=== PATIENT | male | born 1970 | race Asian ===

== ENCOUNTER 2019-07-16 15:39 | Outpatient (CLI) | payer BC ==
--- NOTE | 2019-07-16 16:33 | RAD ---
LUMBAR SPINE TWO-THREE VIEW: 07/16/19 INDICATION: Myofascial pain syndrome. FINDINGS: There is no evidence of compression fracture or subluxation. There is multilevel facet osteoarthritis . Mild end plate osteophytosis. IMPRESSION: Degenerative change of the lumbar spine without acute compression fracture or subluxation. POS: C
== END 2019-07-16 15:40 | disposition home or self-care (01) ==
LOC: BICRAD 15:39
PROVIDERS: ATTEND Internal Medicine
DX: M79.18 Myalgia, other site (principal); M47.816 Spondylosis without myelopathy or radiculopathy, lumbar region
CPT/HCPCS: 72100

== ENCOUNTER 2020-04-22 06:15 | Outpatient (CLI) | payer BC, OTHER ==
[2020-04-22 11:28] LABS: #Eosinphils 0.1 thou/uL (0.0-0.7); #Lymphocytes 1.3 thou/uL (1.20-3.40); #Monocytes 0.4 thou/uL (0.11-0.59); #Neutrophils 2.7 thou/uL (1.40-6.50); %Basophils 0.9 % (0.0-1.0); %Eosinophils 2.4 % (0.0-10.0); %Lymphocytes 29.4 % (21.0-51.0); %Monocytes 7.6 % (0.0-10.0); %Neutrophils 59.8 % (42.0-75.0); Hemoglobin 15.5 g/dL (14.0-18.0); Mean Corpuscular HGB CONC 33.8 g/dL (32.0-36.0); Mean Corpuscular Volume 94.8 fL (78.0-98.0); Mean Platelet Volume 8.6 fL (7.4-10.4); Platelet Count 236 thou/uL (130-400); Red Blood Cell (RBC) Count 4.84 mill/uL (4.70-6.10); White Blood Cell (WBC) Count 4.6 thou/uL (4.8-10.8)
[2020-04-22 11:37] LABS: Bacteria/HPF None Seen HPF (None Seen); Bilirubin Negative (Negative); Blood, Urine Negative (Negative); Clarity Clear (Clear); Glucose, Urine (Dipstick) Normal (Negative); Leukocyte Negative Leu/uL (Negative); Nitrite Negative (Negative); Protein, Urine (Dipstick) Negative (Neg-Trace); RBC/HPF 0-3 HPF (0-3); Squamous Epithelial None Seen HPF (0-3); Urobilinogen Normal mg/dL (Less than 2); WBC/HPF None Seen HPF (0-3)
[2020-04-22 12:01] LABS: Anion Gap 15 mmol/L (10-20); BUN (Urea Nitrogen) 16 mg/dL (8.9-20.6); Calc. Creatinine Clearance 0 mL/min (70-130); Calcium 9.6 mg/dL (7.8-10.44); Carbon Dioxide 29 mmol/L (22-29); Chloride 101 mmol/L (98-107); Estimated GFR-MDRD 88; Glucose 101 mg/dL (70-105); Potassium 4.5 mmol/L (3.5-5.1); Sodium 140 mmol/L (136-145)
[2020-04-23 11:33] LABS: SARS-CoV-2 MS2 Positive; SARS-CoV-2 N Gene Negative; SARS-CoV-2 S Gene Negative; SARS-CoV-2 orf1ab Negative
== END 2020-04-22 06:16 | disposition home or self-care (01) ==
LOC: LABBT 06:15
PROVIDERS: ATTEND Urology
DX: Z01.812 Encounter for preprocedural laboratory examination (principal); Z11.59 Encounter for screening for other viral diseases; N40.0 Benign prostatic hyperplasia without lower urinary tract symptoms; R39.9 Unspecified symptoms and signs involving the genitourinary system
CPT/HCPCS: 80048; 81001; 85025; 87086; 87635; U0003

== ENCOUNTER 2020-04-26 06:23 | Day surgery (SDC) | payer BC ==
[2020-04-21 13:39] VITALS: BMI 20.6
[2020-04-26] MEDS ORDERED: Levofloxacin 500 mg/D5W 100 ml Premix Bag ONE (07:20)
[2020-04-26] MEDS ORDERED: Oxybutynin 5 MG TAB ONE (09:35)
[2020-04-26] MEDS ORDERED: Phenazopyridine HCl 97.5 MG TABLET ONE (09:35)
[2020-04-26] MEDS ORDERED: Ketorolac Tromethamine 30 MG/ML VIAL ONE (09:35)
[2020-04-26] MEDS ORDERED: Labetalol HCl 100 MG/20 ML VIAL ONE (09:35)
[2020-04-26] MEDS ORDERED: Ondansetron PF 4 MG/2 ML Vial ONE (10:54)
[2020-04-26] MEDS ORDERED: PROPOFOL 200 MG/20 ML VIAL ONE (10:54)
--- NOTE | 2020-04-26 14:27 | OP ---
DATE OF PROCEDURE: 04/26/2020 PREOPERATIVE DIAGNOSIS: Enlarged prostate with lower urinary tract symptoms. POSTOPERATIVE DIAGNOSIS: Enlarged prostate with lower urinary tract symptoms. PROCEDURE PERFORMED: Cystoscopy with placement of prostatic Lift device/UroLift. ANESTHESIA: TIVA. COMPLICATIONS: None. ESTIMATED BLOOD LOSS: None. SPECIMENS: None. DESCRIPTION OF PROCEDURE: After informed consent, the patient was taken to the operating room, transferred to the table under his own power. Anesthesia was established. A time-out was performed, showing the correct patient, site, and procedure. Preop antibiotics were administered. He was prepped and draped in the lithotomy position. The 20-Italian cystoscope was inserted through the urethra noting a normal course and caliber of the urethra into the prostate noting obstructing bladder neck with coapting lateral lobes. The bladder was then entered and systematically examined, noting mild trabeculation. Both ureters were normal in appearance. The cystoscopy bridge was replaced with the UroLift delivery device. The first treatment site was the patient's left side approximately 2 cm distal to the bladder neck. The distal tip of the delivery device was then angled laterally approximately 20 degrees of this position to compress the lateral lobe. Trigger was pulled, thereby deploying a needle containing the implant through the prostate. The needle was then retracted, allowing one end of the implant to be delivered to the capsular surface of the prostate. The implant was then tensioned to assure capsular seating and removal of slack monofilament. The device was then angled back towards midline and slowly advanced proximally (typically 3 to 4 mm) until cystoscopic verification of the monofilament being centered in the delivery bay. The urethral end piece was then affixed to the monofilament, thereby tailoring the size of the implant. Excess filament was then severed. The delivery device was then readvanced into the bladder. The same procedure was then repeated on the right side near the bladder neck deploying the second implant. Two additional implants were delivered proximal to the first two, again one on the right and one on the left side of the prostate following a similar technique. We then switched back to the visual obturator, noting no evidence of persistent obstruction. The bladder was drained and then filled with about 200 mL of saline. The patient was awoken from anesthesia, transferred back to his hospital bed and taken to PACU in stable condition, where he will be discharged home upon recovery. CRITERIA: No active UTI. Conservative management has failed and surgical intervention is indicated. IPSS 20/4. Prostate volume 16 g. Job ID: [id number]
== END 2020-04-26 11:02 | disposition home or self-care (01) ==
LOC: SDC 06:23
PROVIDERS: ATTEND Urology
PROC: 0T7D8DZ Dilation of Urethra with Intraluminal Device, Via Natural or Artificial Opening Endoscopic (ICD-10-PCS; principal; 2020-04-26)
DX: N40.1 Benign prostatic hyperplasia with lower urinary tract symptoms (principal); N13.8 Other obstructive and reflux uropathy; I10 Essential (primary) hypertension; Z79.899 Other long term (current) drug therapy; Z87.891 Personal history of nicotine dependence
CPT/HCPCS: C1889; J1885; J1956; J2405; J2704